=== PATIENT | female | born 1945 | race Caucasian/White ===

== ENCOUNTER 2019-06-11 10:00 | Day surgery (SDC) | payer OTHER ==
[~2019-06-11] VITALS: Ht 157.5 cm; Wt 59.6 kg
[2019-06-11 10:46] VITALS: BP 169/78
[2019-06-11] MEDS ORDERED: CHOL2000 PO (10:57)
[2019-06-11] MEDS ORDERED: TURM538C PO (10:57)
[2019-06-11] MEDS ORDERED: MAGN400T36 PO (10:57)
[2019-06-11] MEDS ORDERED: POTA99TA24 PO (10:57)
[2019-06-11] MEDS ORDERED: BIOT1CAP3 PO (10:57)
[2019-06-11] MEDS ORDERED: THEO400T2 PO (10:57)
[2019-06-11] MEDS ORDERED: MIDAZOLAM 1 MG/ML, 2ML ONE (11:24)
[2019-06-11] MEDS ORDERED: VERAPAMIL 2.5 MG/ML, 2ML ONE (11:24)
[2019-06-11] MEDS ORDERED: LIDOCAINE-MPF 1%, 5ML ONE (11:25)
[2019-06-11] MEDS ORDERED: NITROGLYCERIN 5 MG/ML, 10ML ONE (11:25)
[2019-06-11] MEDS ORDERED: HEPARIN 1,000 UNITS/ML, 10ML ONE (11:25)
[2019-06-11] MEDS ORDERED: FENTANYL PF 100 MCG/2ML ONE (11:27)
[2019-06-11] MEDS ORDERED: DIPHENHYDRAMINE 50 MG/ML, 1ML ONE (11:34)
[2019-06-11] MEDS ORDERED: SODIUM CHLORIDE 0.9% 1,000 ML IV SCH (12:00)
== END 2019-06-11 13:45 | disposition home or self-care (01) ==
LOC: CACL 10:00
PROVIDERS: ATTEND Internal Medicine Cardiovascular Disease
DX: R94.39 Abnormal result of other cardiovascular function study (principal); I25.119 Atherosclerotic heart disease of native coronary artery with unspecified angina pectoris; I25.83 Coronary atherosclerosis due to lipid rich plaque; J44.9 Chronic obstructive pulmonary disease, unspecified; Z79.899 Other long term (current) drug therapy; Z87.891 Personal history of nicotine dependence; Z88.5 Allergy status to narcotic agent; Z91.018 Allergy to other foods; Z82.49 Family history of ischemic heart disease and other diseases of the circulatory system
CPT/HCPCS: 93458; 99156; C1894; J1200; J1644; J2250; J3010; Q9967

== ENCOUNTER → 2019-06-27 | Outpatient (CLI) | payer OTHER ==
[~2019-06-27] MED LIST: BIOT1CAP3 PO; CHOL2000 PO; MAGN400T36 PO; POTA99TA24 PO; THEO400T2 PO; TURM538C PO
== END | disposition home or self-care (01) ==
LOC: CFH 13:35
PROVIDERS: ATTEND Internal Medicine Cardiovascular Disease
DX: I08.0 Rheumatic disorders of both mitral and aortic valves (principal)
CPT/HCPCS: 93306

== ENCOUNTER → 2019-07-10 | Outpatient (CLI) | payer OTHER | END | disposition home or self-care (01) | LOC: CFH 12:06 | PROVIDERS: ATTEND Registered Nurse | DX: J44.9 Chronic obstructive pulmonary disease, unspecified (principal) | CPT/HCPCS: 71046 ==